=== PATIENT | female | born 1985 | race African-American/Black ===

== ENCOUNTER 2018-08-09 11:22 | Emergency (ER) | payer SELFPAY ==
[~2018-08-09] VITALS: Ht 160 cm; Wt 96.6 kg
[2018-08-09 11:35] VITALS: BP 156/90
[2018-08-09] MEDS ORDERED: HYDROcodone/APAP 5/325 TABLET ONE (11:51)
[2018-08-09] MEDS ORDERED: HYDROcodone/APAP 5/325 TABLET PO ONE (12:00)
--- NOTE | 2018-08-09 12:11 | NUR ---
PT STATES SOME IMPROVEMENT IN RIGHT DENTAL PAIN SINCE MEDICATED FOR SAME. PT GIVEN DISCHARGE AND AMBULATED TO DISCHARGE WINDOW, STEADY GAIT
== END 2018-08-09 12:18 | disposition home or self-care (01) ==
LOC: ED 12:15
DX: K02.9 Dental caries, unspecified (principal); F17.200 Nicotine dependence, unspecified, uncomplicated; K08.89 Other specified disorders of teeth and supporting structures
CPT/HCPCS: 99283